=== PATIENT | female | born 1960 | race Caucasian/White ===

== ENCOUNTER 2023-05-31 10:01 | Inpatient (IN) | payer MEDICARE, MEDICAID ==
[~2023-05-31] VITALS: Ht 162.6 cm; Wt 91.5 kg
[2023-05-31 10:37] LABS: Basophils # (auto) 0.1 10 ^3/uL (0-0.2); Basophils % (auto) 0.8 % (0.0-2.0); Eosinophils # (auto) 0.1 10 ^3/uL (0-0.8); Eosinophils % (auto) 0.9 % (0.0-7.0); Hematocrit 41.6 % (36.0-46.0); Hemoglobin 13.6 g/dL (12.2-16.2); Lymphocytes # (auto) 2.3 10 ^3/uL (0.4-5.4); Lymphocytes % (auto) 30.5 % (10.0-50.0); Mean Corpuscular Hemoglobin 27.3 pg (28.0-32.0); Mean Corpuscular Hgb Conc. 32.8 g/dL (32.0-36.0); Mean Corpuscular Volume 83.4 fL (80.0-100.0); Monocytes # (auto) 0.6 10 ^3/uL (0-1.3); Monocytes % (auto) 7.7 % (0.0-12.0); Neutrophils # (auto) 4.5 10 ^3/uL (1.6-8.6); Neutrophils % (auto) 60.1 % (37.0-80.0); Nucleated Red Blood Cells % 0.2 %; Red Blood Cells 4.99 10^6/uL (4.0-5.20); White Blood Cell 7.4 10^3/uL (4.4-10.8)
[2023-05-31] MEDS ORDERED: methylPREDNISolone SOD SUCC 125 MG/2 ML VL IV ONE (10:45)
[2023-05-31 10:53] LABS: Alanine Aminotransferase 16 U/L (7-40); Alkaline Phosphatase 62 U/L (46-116); Anion Gap 7 (5-15); Aspartate Aminotransferase 14 U/L (13-40); BUN/Creatinine Ratio 26.4 (10.0-20.0); Blood Urea Nitrogen 19 mg/dL (9-23); Calcium 9.9 mg/dL (8.5-10.1); Carbon Dioxide 27 mmol/L (20-30); Chloride 104 mmol/L (98-107); Glucose 93 mg/dL (74-106); Potassium 4.3 mmol/L (3.5-5.1); Sodium 138 mmol/L (136-145)
[2023-05-31 10:54] LABS: Albumin 4.4 g/dL (3.2-4.8); Bilirubin, Total 0.3 mg/dL (0.2-1.0); Total Protein 6.6 g/dL (5.7-8.2)
[2023-05-31 11:13] LABS: INR 0.99 (0.9-1.15); Partial Thromboplastin Time 30.8 SEC (24.5-34.5); Prothrombin Time 10.4 sec (9.3-11.8)
[2023-05-31 12:32] LABS: COVID19 ANTIGEN SOFIA FIA NEGATIVE (NEGATIVE)
[2023-05-31] MEDS ORDERED: DOCUSATE SOD 100 MG CAP PO PRN (13:45)
[2023-05-31] MEDS ORDERED: METOCLOPRAMIDE HCL 5MG/ml INJ 2ml VIAL IV PRN (13:45)
[2023-05-31] MEDS ORDERED: NITROGLYCERIN 0.4 MG SL TAB SL PRN (13:45)
[2023-05-31] MEDS ORDERED: MORPHINE SULFATE INJ 2 MG/ml SYRG IV PRN (13:45)
[2023-05-31] MEDS ORDERED: IOHEXOL 350 MG/ML 100ML IJ ONE (14:21)
[2023-05-31] MEDS ORDERED: ALBUTEROL SULF 2.5 MG/0.5ML(0.5%) NEB SOLN NEB PRN (15:15)
[2023-05-31 16:25] LABS: CRP High Sensitivity 0.12 mg/dL (<1.0)
[2023-05-31 20:36] VITALS: O2SAT 96
[2023-05-31] MEDS ORDERED: MONTELUKAST SODIUM 10 MG TAB PO SCH (22:00)
[2023-05-31] MEDS: FERROUS SULFATE 325mg EC TAB PO SCH (23:29)
[2023-05-31] MEDS: APIXABAN 5 MG TAB PO SCH (23:29)
[2023-05-31] MEDS: BACLOFEN 10 MG TAB PO SCH (23:29)
[2023-05-31 23:36] VITALS: BP 149/91; PULSE 85; RESP 18; TEMP 98.2; O2SAT 97
[2023-06-01] VITALS (9 sets, daily range): BP systolic 133–136; BP diastolic 61–95; PULSE 68–88; RESP 16–18; TEMP 97.7–98.4; O2SAT 91–98
[2023-06-01] MEDS: MORPHINE SULFATE INJ 2 MG/ml SYRG IV PRN ×2 (01:14→08:14)
[2023-06-01 02:53] LABS: Urine Bacteria NONE SEEN /hpf (None Seen); Urine Blood 1+ /uL (Negative); Urine Clarity Clear (Clear); Urine Color Yellow (Yellow); Urine Mucus FEW (None Seen); Urine Protein, UAD TRACE (Negative); Urine Urobilinogen Normal (Negative); Urine WBC 9 /hpf (0 - 5); Urine pH 5.5 (5.0-8.0)
[2023-06-01 02:59] LABS: Amphetamine Screen, Urine Neg (NEGATIVE); Barbiturate Scree,Urine Neg (NEGATIVE); Benzodiazephine Screen, Urine Neg (NEGATIVE); Cocaine Screen, Urine Neg (NEGATIVE); Opiate Scree,Urine Neg (NEGATIVE); Phencyclidine Screen, Urine Neg (NEGATIVE)
[2023-06-01 03:00] LABS: Cannabinoid Screen, Urine Neg (NEGATIVE)
[2023-06-01] MEDS ORDERED: FERR325T24 PO (03:54)
[2023-06-01] MEDS ORDERED: SUMA50TA2 PO (03:54)
[2023-06-01] MEDS ORDERED: TOPI100T68 PO (03:54)
[2023-06-01] MEDS ORDERED: FLUT0.05 NAS (03:54)
[2023-06-01] MEDS ORDERED: CHOL1TAB30 PO (03:54)
[2023-06-01] MEDS ORDERED: CYAN100060 IM (03:54)
[2023-06-01] MEDS ORDERED: OMEP20TA PO (03:54)
[2023-06-01] MEDS ORDERED: DOXE75CA20 PO (03:54)
[2023-06-01] MEDS ORDERED: APIX5TAB PO ×2 (03:54→15:14)
[2023-06-01] MEDS ORDERED: FLUT1INH6 INH (03:54)
[2023-06-01] MEDS ORDERED: MONT-8 PO (03:54)
[2023-06-01] MEDS ORDERED: CETI10TA2 PO (03:54)
[2023-06-01] MEDS ORDERED: AMLO1TAB23 PO (03:54)
[2023-06-01] MEDS ORDERED: BACL10TA PO (03:54)
[2023-06-01] MEDS: BACLOFEN 10 MG TAB PO SCH ×2 (05:59→13:56)
[2023-06-01] MEDS: IPRATROPIUM BROM 0.5 MG/2.5ML INH SOL NEB SCH ×2 (06:10→13:13)
[2023-06-01 06:39] LABS: Basophils # (auto) 0 10 ^3/uL (0-0.2); Basophils % (auto) 0.2 % (0.0-2.0); Eosinophils # (auto) 0 10 ^3/uL (0-0.8); Eosinophils % (auto) 0.1 % (0.0-7.0); Hematocrit 38.5 % (36.0-46.0); Hemoglobin 12.9 g/dL (12.2-16.2); Lymphocytes # (auto) 1.5 10 ^3/uL (0.4-5.4); Lymphocytes % (auto) 16.6 % (10.0-50.0); Mean Corpuscular Hemoglobin 27.7 pg (28.0-32.0); Mean Corpuscular Hgb Conc. 33.6 g/dL (32.0-36.0); Mean Corpuscular Volume 82.5 fL (80.0-100.0); Monocytes # (auto) 1.1 10 ^3/uL (0-1.3); Monocytes % (auto) 12.1 % (0.0-12.0); Neutrophils # (auto) 6.3 10 ^3/uL (1.6-8.6); Red Blood Cells 4.67 10^6/uL (4.0-5.20); White Blood Cell 8.9 10^3/uL (4.4-10.8)
[2023-06-01 06:56] LABS: Alanine Aminotransferase 15 U/L (7-40); Albumin 4.1 g/dL (3.2-4.8); Alkaline Phosphatase 48 U/L (46-116); Anion Gap 6 (5-15); BUN/Creatinine Ratio 29.8 (10.0-20.0); Blood Urea Nitrogen 17 mg/dL (9-23); Calcium 9.2 mg/dL (8.7-10.4); Carbon Dioxide 26 mmol/L (20-30); Chloride 106 mmol/L (98-107); Glucose 113 mg/dL (74-106); Potassium 3.7 mmol/L (3.5-5.1); Sodium 138 mmol/L (136-145)
[2023-06-01 06:57] LABS: Aspartate Aminotransferase 8 U/L (13-40); Bilirubin, Total 0.6 mg/dL (0.2-1.0); Total Protein 6.6 g/dL (5.7-8.2)
[2023-06-01] MEDS: FERROUS SULFATE 325mg EC TAB PO SCH (08:14)
[2023-06-01] MEDS ORDERED: amLODIPine BESYLATE 5 MG TAB PO SCH (10:00)
[2023-06-01] MEDS ORDERED: CYANOCOBALAMIN 500 MCG TAB PO SCH (10:00)
[2023-06-01] MEDS: APIXABAN 5 MG TAB PO SCH (10:29)
[2023-06-01] MEDS ORDERED: ACETAMINOPHEN 325 MG TAB PO PRN (13:45)
[2023-06-01] MEDS ORDERED: AML5T PO (15:14)
== END 2023-06-01 15:42 | disposition home or self-care (01) | DRG 189 ==
LOC: ER 10:01 → TELE 13:37 → TELE-CENTR 06-01 02:33
PROVIDERS: ADMIT Internal Medicine; ATTEND Internal Medicine
DX: J96.00 Acute respiratory failure, unspecified whether with hypoxia or hypercapnia (principal); J45.901 Unspecified asthma with (acute) exacerbation; E78.5 Hyperlipidemia, unspecified; I10 Essential (primary) hypertension; J44.89 Other specified chronic obstructive pulmonary disease; Z20.822 Contact with and (suspected) exposure to COVID-19; M79.661 Pain in right lower leg; J44.9 Chronic obstructive pulmonary disease, unspecified; Z86.711 Personal history of pulmonary embolism
CPT/HCPCS: 36415; 71045; 71275; 80053; 80061; 80307; 81001; 82306; 82607; 83036; 83735; 83880; 84443; 84484; 85025; 85379; 85610; 85730; 86141; 87426; 93005; 93306; 93971; 94640; 96374; G0378

== ENCOUNTER → 2024-06-30 | Outpatient (CLI) | payer MEDICARE, OTHER ==
[~2024-06-30] MED LIST: AML5T PO; AMLO1TAB23 PO; APIX5TAB PO; BACL10TA PO; CETI10TA2 PO; CHOL1TAB30 PO; CYAN100060 IM; DOXE75CA20 PO; FERR325T24 PO; FLUT0.05 NAS; FLUT1INH6 INH; MONT-8 PO; OMEP20TA PO; SUMA50TA2 PO; TOPI100T68 PO
== END | disposition home or self-care (01) ==
LOC: Rad HDHVI 14:34
PROVIDERS: ATTEND Internal Medicine Cardiovascular Disease
DX: I10 Essential (primary) hypertension (principal)
CPT/HCPCS: 93306

== ENCOUNTER → 2024-07-01 | Outpatient (CLI) | payer MEDICARE, OTHER ==
[~2024-07-01] VITALS: Ht 162.6 cm; Wt 90.7 kg
--- NOTE | 2024-07-06 16:21 | DVHSR ---
APPROVED REPORT Exam: Nuclear Stress Test Indication: Chest pain, Dyspnea Ht: 5 ft 4 in Wt: 200 lbs BSA: 1.96 m2 HR: 74 bpm BP: 136/90 mmHg BMI: 34.32 Rhythm: NSR Medical History Medical History: Chest pain, HTN, Hypercholesterolemia, SOB Medications: Albuterol inh, Amlodipine, Atorvastatin, Baclofen, Breo Ellipta, Budesonide-formoterol H FA, Cetirizine, Vit B12, Doxepin, Eliquis, Famotidine, Ferrous sulfate, Fluticasone propionate, Gabap entin, Lidocaine patch, Montelukast, Omeprazole, Topiramate, Vit D3 Allergies: Codeine Cardiac Risk Factors: Family Hx of CAD Stress Test Details Stress Test: Exercise stress testing was performed using a [place] protocol. HR Resting HR: 74 bpmMax Heart Rate (APMHR): 157.438222 bpm Max HR Achieved: 134 bpmTarget HR (85% APMHR): 133.744061 bpm % of APMHR: 85.35 Recovery HR: 85 bpm HR response to stress: Normal HR response to stress BP Resting BP: 136/90 mmHg Max BP: 174/85 mmHg Recovery BP: 154/85 mmHg BP response to stress: Exaggerated response ECG Resting ECG: Sinus Rhythm Stress ECG: Sinus Tachycardia Arrhythmia: PVCs, PVC couplets Recovery ECG: Sinus Rhythm Clinical Reason for Termination: Dyspnea, Fatigue Stress Symptoms: Dyspnea, Sternal pain, Mild dizziness Exercise duration: 5 min 30 sec Exercise capacity: 6.3 METs All symptoms subsided during recovery and pt returned to baseline. Stress ECG Conclusion NON ISCHEMIC CLINICAL RESPONSE NON ISCHEMIC ECG RESPONSE LESS THAN 10% LIKELIHOOD FOR STRESS INDUCED ISCHEMIA EF >55% NM EXAM: Myocardial Perfusion REST/STRESS Imaging Protocol: Rest Tc-99m/Stress Tc-99m 1 day Resting Data Rest SPECT myocardial perfusion imaging was performed in supine position 30 minutes following the int ravenous injection of 10.7 mCi of Tc-99m Sestamibi. Time of rest injection: 0945 Time of rest imagin Administration Route: IV Administration Site: Right AC Exercise Stress At peak stress, the patient was injected intravenously with 29.2 mCi of Tc-99m Sestamibi. Time of stress injection: 1141 Time of stress imagin Administration Route: IV Administration Site: Right AC Heart Rate at time of stress injection: 134 bpm. Patient continued to exercise for 1 minute(s). Gated Stress SPECT was performed 15 minutes after stress injection. The images were gated to evaluate regional wall motion and calculate left ventricular ejection fracti on. Comments Cardiolite injection at 4 minutes, 44 seconds into test. Study Data Post stress, the left ventricular ejection was >55%.. Nuclear Conclusion ECG Findings: negative for ischemia Clinical Findings: negative for ischemia Nuclear Findings: negative for ischemia Left Ventricular Function: normal NON ISCHEMIC CLINICAL RESPONSE NON ISCHEMIC ECG RESPONSE LESS THAN 10% LIKELIHOOD FOR STRESS INDUCED ISCHEMIA EF >55%
== END | disposition home or self-care (01) ==
LOC: Rad HDHVI 09:42
PROVIDERS: ATTEND Internal Medicine Cardiovascular Disease
DX: Z13.6 Encounter for screening for cardiovascular disorders (principal); I10 Essential (primary) hypertension; E78.00 Pure hypercholesterolemia, unspecified; R06.02 Shortness of breath; R07.89 Other chest pain; Z82.49 Family history of ischemic heart disease and other diseases of the circulatory system; Z88.5 Allergy status to narcotic agent; Z79.51 Long term (current) use of inhaled steroids
CPT/HCPCS: 78452; 93017; A9500; 96374

== ENCOUNTER → 2024-08-12 | Outpatient (CLI) | payer MEDICARE, OTHER | END | disposition home or self-care (01) | LOC: Rad HDHVI 10:02 | PROVIDERS: ATTEND Internal Medicine Cardiovascular Disease | DX: M79.661 Pain in right lower leg (principal); M79.662 Pain in left lower leg | CPT/HCPCS: 93970 ==

== ENCOUNTER 2024-12-25 09:05 | Outpatient (CLI) | payer MEDICARE, OTHER ==
[2024-12-25 09:30] VITALS: BP 152/86; PULSE 74; RESP 16; O2SAT 97
[2024-12-25] MEDS ORDERED: IOHEXOL 350 MG/ML 100ML IJ ONE (09:32)
[2024-12-25 09:45] VITALS: BP 143/85; PULSE 74; RESP 16; O2SAT 97
--- NOTE | 2024-12-25 12:21 | DVH ---
CT CT ANGIO CHEST CONTRAST INDICATION: R/O PE EXAM DATE: 12/25/2024 09:27 AM COMPARISON: CT CT ANGIO CHEST CONTRAST on DOS: 05/31/23, XY CHEST PORTABLE on DOS: 05/31/23 RADIATION DOSE: CTDIvol: 17.76 mGy, DLP: 480.23 mGy*cm PROCEDURE: Helical CT angiographic images were obtained of the chest with intravenous contrast. Sagi ttal and coronal reconstructions as well as MIPS are provided. Maximum intensity projections performe d (MIPs) were performed for CTA. ADDITIONAL IMAGES / REFORMATS: None All CT scans at this medical facility are performed using dose modulation techniques as appropriate t o a performed exam including the following: Automated exposure control was utilized; adjustment of th e MA and/or KV according to patient size; and use of iterative reconstruction technique. FINDINGS: Bones: Scattered degenerative changes are noted in the visualized osseous structures. Visualized Abdomen: Similar hiatal hernia. Punctate nonobstructive left kidney stone. Chest Wall: Normal. Soft tissues: Normal. Mediastinum: Normal. Heart: Normal. Vessels: No filling defects in the visualized pulmonary arteries including the segmental and subsegme ntal pulmonary arteries. Lymph Nodes: Normal. Pleura: Normal. Airways: Normal. Lung: Bibasilar atelectasis. Other: None IMPRESSION: No pulmonary embolism in the visualized pulmonary arteries including the segmental and subsegmental p ulmonary arteries.
== END 2024-12-25 17:00 | disposition home or self-care (01) ==
LOC: Rad HDHVI 09:05
PROVIDERS: ATTEND Internal Medicine Cardiovascular Disease
DX: J98.11 Atelectasis (principal); K44.9 Diaphragmatic hernia without obstruction or gangrene; N20.0 Calculus of kidney; M47.814 Spondylosis without myelopathy or radiculopathy, thoracic region
CPT/HCPCS: 71275; G0463; Q9967